=== PATIENT | male | born 1960 | race Caucasian/White ===

== ENCOUNTER 2020-03-29 12:39 | Day surgery (SDC) | payer OTHER ==
[~2020-03-29] VITALS: Ht 182.9 cm; Wt 106.4 kg
[~2020-03-29 12:39] MED LIST: BUPIVACAINE/PF 0.5% ONE; EPINEPHRINE 1 MG/ML, 1ML ONE
[2020-03-29] MEDS ORDERED: CHLORHEXIDINE 15 ML UDC MM STA (12:47)
[2020-03-29] MEDS ORDERED: LACTATED RINGERS 1,000 ML IV STA (12:47)
[2020-03-29 12:57] VITALS: BP 179/91
[2020-03-29] MEDS ORDERED: NO MEDS PER PT (12:57)
[2020-03-29] MEDS ORDERED: PLEASE ENTER HEIGHT AND WEIGHT MC SCH (13:00)
[2020-03-29] MEDS ORDERED: CHLORHEXIDINE 15 ML UDC ONE (13:07)
[2020-03-29] MEDS ORDERED: FENTANYL PF 250 MCG/5ML ONE (13:45)
[2020-03-29] MEDS ORDERED: MIDAZOLAM 1 MG/ML, 2ML ONE ×2 (13:45→16:14)
[2020-03-29] MEDS ORDERED: LACTATED RINGERS 1,000 ML IV ONE (14:30)
[2020-03-29] MEDS ORDERED: PROPOFOL 10 MG/ML, 20ML ONE (14:50)
[2020-03-29] MEDS ORDERED: DEXAMETHASONE 4 MG/ML, 1ML ONE (14:50)
[2020-03-29] MEDS ORDERED: CEFAZOLIN 1,000 MG ONE (14:50)
[2020-03-29] MEDS ORDERED: SUCCINYLCHOLINE 20 MG/ML, 10ML ONE (14:50)
[2020-03-29] MEDS ORDERED: ONDANSETRON 2MG/ML, 2ML ONE (14:50)
[2020-03-29] MEDS ORDERED: ROCURONIUM 10MG/ML,5ML ONE (14:50)
[2020-03-29] MEDS ORDERED: SUGAMMADEX 200 MG/2 ML IVPush ONE (14:50)
[2020-03-29] MEDS ORDERED: FENTANYL PF 100 MCG/2ML ONE ×2 (16:12→16:41)
[2020-03-29] MEDS: FENTANYL PF 100 MCG/2ML IV PRN ×3 (16:14→16:43)
[2020-03-29] MEDS ORDERED: ALBUTEROL SULFATE 2.5 MG/3 ML NPPB PRN (16:30)
[2020-03-29] MEDS ORDERED: OXYcodone 5 MG/5 ML ORAL.SOL UDC PO PRN (16:30)
[2020-03-29] MEDS ORDERED: PROMETHAZINE 25 MG/ML, 1ML IV PRN (16:30)
[2020-03-29] MEDS ORDERED: hydrALAzine 20 MG/ML, 1ML IV PRN (16:30)
[2020-03-29] MEDS ORDERED: MEPERIDINE/PF 25MG/0.5ML IVPush PRN (16:30)
[2020-03-29] MEDS ORDERED: ONDANSETRON 2MG/ML, 2ML IVPush PRN (16:30)
[2020-03-29] MEDS ORDERED: KETOROLAC 30 MG/1 ML IV PRN (16:30)
[2020-03-29] MEDS ORDERED: DIAZEPAM 5 MG/ML, 2ML IV PRN ×2 (16:30)
[2020-03-29] MEDS ORDERED: METOCLOPRAMIDE 5 MG/ML, 2ML IV PRN (16:30)
[2020-03-29] MEDS ORDERED: LABETALOL 5MG/ML, 20ML IV PRN (16:30)
[2020-03-29] MEDS ORDERED: HYDROmorphone 1 MG/ML, 1ML INJ IV PRN (16:30)
[2020-03-29] MEDS ORDERED: OXYcodone 5 MG/5 ML ORAL.SOL UDC ONE (16:33)
[2020-03-29] MEDS ORDERED: PROMETHAZINE 25 MG/ML, 1ML ONE (16:55)
[2020-03-29] MEDS ORDERED: MIDAZOLAM 1 MG/ML, 2ML IVPush ONE (17:30)
[2020-03-29] MEDS ORDERED: MIDAZOLAM 1 MG/ML, 2ML IVPush SCH (17:30)
== END 2020-03-29 18:50 | disposition home or self-care (01) ==
LOC: OUT 12:39
PROVIDERS: ATTEND Surgery
DX: K40.20 Bilateral inguinal hernia, without obstruction or gangrene, not specified as recurrent (principal); Z20.828 Contact with and (suspected) exposure to other viral communicable diseases; D17.6 Benign lipomatous neoplasm of spermatic cord; N32.3 Diverticulum of bladder; Z79.899 Other long term (current) drug therapy
CPT/HCPCS: 49650; 87635; 93005; C1781; J0171; J0330; J0690; J1100; J2250; J2405; J2550; J2704; J3010; J7120; S2900